=== PATIENT | female | born 2005 | race Caucasian/White ===

== ENCOUNTER 2023-07-20 16:24 | Emergency (ER) | payer MEDICAID ==
[~2023-07-20] VITALS: Ht 139.7 cm; Wt 47.2 kg
[2023-07-20 16:36] VITALS: BP 111/61; PULSE 85; RESP 16; TEMP 98.4; O2SAT 100
[2023-07-20] MEDS ORDERED: CALC355O5 PO (17:27)
[2023-07-20] MEDS: ALUMINUM HYD/MAG/SIMETHICONE 30 ML UDC PO ONE (17:28)
== END 2023-07-20 17:52 | disposition home or self-care (01) ==
LOC: MED 16:24
DX: O99.511 Diseases of the respiratory system complicating pregnancy, first trimester (principal); Z3A.11 11 weeks gestation of pregnancy; Z79.899 Other long term (current) drug therapy
CPT/HCPCS: 93005; 99283

== ENCOUNTER 2023-08-06 05:55 | Emergency (ER) | payer MEDICAID ==
[~2023-08-06] VITALS: Ht 142.2 cm; Wt 47.2 kg
[~2023-08-06 05:55] MED LIST: CALC355O5 PO
[2023-08-06 06:08] VITALS: BP 92/60; PULSE 80; RESP 14; TEMP 97.5; O2SAT 100
[2023-08-06 07:14] LABS: BASOPHILS % (AUTO) 0.3 % (0.0-2.0); EOSINOPHILS # (AUTO) 0.2 K/uL (0-0.4); EOSINOPHILS % (AUTO) 2.6 % (0.0-4.0); HEMATOCRIT 33.8 % (36-48); HEMOGLOBIN 11.8 g/dL (12.0-16.0); LYMPHOCYTES # (AUTO) 2.3 K/uL (2.5-16.5); LYMPHOCYTES % (AUTO) 27.6 % (20.5-51.1); MEAN CORPUSCULAR HEMOGLOBIN 31 pg (27-31); MEAN CORPUSCULAR HGB CONC 35 g/dL (33-37); MEAN CORPUSCULAR VOLUME 89.8 fL (80-94); MONOCYTES # (AUTO) 0.7 K/uL (0.8-1.0); MONOCYTES % (AUTO) 8.1 % (1.7-9.3); NEUTROPHILS # (AUTO) 5.1 K/uL (1.8-7.7); NEUTROPHILS % (AUTO) 61.4 % (42.2-75.2); PLATELET COUNT (AUTO) 253 K/uL (140-450); RED BLOOD CELL COUNT(AUTO) 3.76 MIL/uL (4.20-5.40); RED CELL DISTRIBUTION WIDTH 13.3 % (11.6-13.7); WHITE BLOOD COUNT (AUTO) 8.3 K/uL (4.5-11.0)
[2023-08-06 08:53] LABS: BILIRUBIN,URINE NEGATIVE (NEGATIVE); BLOOD, URINE 2+ (NEGATIVE); COLOR,URINE YELLOW (YELLOW); LEUKOCYTE ESTERASE ,URINE NEGATIVE (NEGATIVE); NITRITE, URINE NEGATIVE (NEGATIVE); PROTEIN,URINE NEGATIVE (NEGATIVE); UGLUCOSE NEGATIVE (NEGATIVE); UROBILINOGEN,URINE 0.2 EU/dL (0.2 - 1)
[2023-08-06 09:04] LABS: BACTERIA,URINE FEW /HPF (None Seen); WBC,URINE 0-5 /HPF (0-5)
[2023-08-06 09:05] LABS: MUCUS,URINE 1+ /LPF (None Seen)
[2023-08-06 09:07] LABS: APPEARANCE,URINE HAZY (CLEAR)
[2023-08-06 09:23] VITALS: BP 86/49; PULSE 73; RESP 18; TEMP 98.3; O2SAT 100
== END 2023-08-06 09:23 | disposition home or self-care (01) ==
LOC: MED 05:55
DX: O20.0 Threatened abortion (principal); Z3A.13 13 weeks gestation of pregnancy
CPT/HCPCS: 36415; 76801; 81001; 84702; 85025; 86900; 86901; 99284; Q0092